=== PATIENT | female | born 1950 | race Caucasian/White ===

== ENCOUNTER → 2016-10-28 | Outpatient (CLI) | payer BC | LOC: FIMAGING 11:27 | DX: Z12.31 Encounter for screening mammogram for malignant neoplasm of breast (principal) | CPT/HCPCS: G0202 ==

== ENCOUNTER 2016-11-19 16:21 | Inpatient (IN) | payer BC ==
[2016-11-19] MEDS ORDERED: ONDANSETRON 4 MG/2 ML VIAL IVP ONE (17:42)
[2016-11-19] MEDS ORDERED: NS 1,000 ML IV ONE (17:42)
[2016-11-19 18:00] LABS: % IMMATURE GRANULYOCYTES 0.4 % (0.0-1.1); ABSOLUTE IMMATURE GRANULOCYTES 0.04 10^3/uL (0.00-0.10); ADD DIFF? NO; ADD MORPH? NO; ADD SCAN? NO; ATYPICAL LYMPHOCYTE FLAG 0 (0-99); FRAGMENT RBC FLAG 0 (0-99); HEMATOCRIT 38.8 % (38.0-47.0); HEMOGLOBIN 12.7 g/dL (12.6-16.3); LEFT SHIFT FLG 0 (0-99); LIPEMIA HEMOLYSIS FLAG 80 (0-99); MEAN CELL HEMOGLOBIN 28.2 pg (27.9-34.1); MEAN CELL HEMOGLOBIN CONCENTR. 32.7 g/dL (32.4-36.7); MEAN PLATELET VOLUME 12.1 fL (8.7-11.7); PLATELET CLUMPS FLAG 10 (0-99); PLATELET COUNT 259 10^3/uL (150-400); RED BLOOD CELL COUNT 4.51 10^6/uL (4.18-5.33); RED CELL DISTRIBUTION WIDTH 14.3 % (11.5-15.2)
[2016-11-19 18:02] LABS: ANION GAP 12 mEq/L (8-16); CALCIUM 9.3 mg/dL (8.5-10.4); CARBON DIOXIDE 22 mEq/l (22-31); CHLORIDE 102 mEq/L (97-110); CREATININE 1.4 mg/dL (0.6-1.0); GLOMERULAR FILTRATION RATE 38; GLUCOSE 255 mg/dL (70-100); POTASSIUM 4.1 mEq/L (3.5-5.2); SODIUM 136 mEq/L (134-144)
--- NOTE | 2016-11-19 18:02 | EDPHY ---
H & P Time Seen by Provider: 11/19/16 17:13 HPI/ROS: CHIEF COMPLAINT: Left lower quadrant pain HISTORY OF PRESENT ILLNESS: 66-year-old female presents with left lower quadrant pain. On 10/31/2016 she was diagnosed with diverticulitis and placed on Levaquin and Flagyl IV. She was admitted to [facility] and discharged home on Levaquin and Flagyl orally. Her symptoms completely resolved , but then returned approximately 1 week ago. She saw her primary care physician on Thursday and was given a another prescription for antibiotics. She felt better until 2 days ago, when she developed increased left lower quadrant pain. She had a CT scan today that demonstrated diverticulitis with perforation. She was sent to the emergency department for admission. REVIEW OF SYSTEMS: Constitutional: fever with the initial episode, none currently Eyes: No visual changes ENT: No sore throat Respiratory: No cough, no shortness of breath Cardiac: No chest pain Gastrointestinal: No nausea, no vomiting Genitourinary: no dysuria Musculoskeletal: No leg pain or swelling Skin: No rash Neurological: No headache, no weakness Psychiatric: No depression Past Medical/Surgical History: Diabetes Hypertension Social History: PCP: Dr. Chahal Smoking Status: Never smoked Physical Exam: General Appearance: Alert, pleasant Eyes: Pupils equal and round, no conjunctival pallor or injection ENT, Mouth: Mucous membranes moist Neck: Normal inspection Respiratory: Lungs are clear to auscultation Cardiovascular: Regular rate and rhythm Gastrointestinal: Abdomen is soft, left lower quadrant tenderness Neurological: A&O, nonfocal, normal gait Skin: Warm and dry, no rash Extremities: Nontender, no pedal edema Psychiatric: Mood and affect normal Constitutional: Initial Vital Signs Temperature (C) 36.8 C 11/19/16 16:52 Heart Rate 72 11/19/16 16:52 Respiratory Rate 20 11/19/16 16:52 Blood Pressure 154/57 H 11/19/16 16:52 O2 Sat (%) 96 11/19/16 16:52 O2 Delivery Mode Room Air O2 (L/minute) 2 Allergies/Adverse Reactions: cefazolin sodium [From Ancef] Allergy (Verified 11/19/16 20:14) Other-Enter Comments cephalexin Allergy (Verified 11/19/16 20:14) Other-Enter Comments Sulfa (Sulfonamide Antibiotics) Allergy (Verified 11/19/16 16:50) Home Medications: Medication Instructions Recorded Aspirin [Aspirin 325 mg (*)] 325 mg PO HS 11/19/16 Atorvastatin Calcium [Lipitor 80 80 mg PO HS 11/19/16 mg] Calcium Carbonate/Vitamin D3 1 each PO DAILY 11/19/16 [Calcium 500 + Vit D Caplet] Carvedilol [Carvedilol] 6.25 mg PO BID 11/19/16 Cholecalciferol Vit D3 [Vitamin D3 1,000 units PO DAILY 11/19/16 (*)] FEXOFENADINE HCL 180 mg PO DAILY PRN 11/19/16 Fluticasone/Salmeterol [Advair 1 puffs PO BID PRN 11/19/16 100-50 Diskus] Furosemide [Furosemide] 20 mg PO DAILY 11/19/16 Herbals/Supplements -Info Only 1 ea PO DAILY 11/19/16 Insulin Glargine [Lantus] 32 units SQ HS 11/19/16 Insulin Lispro [Humalog] 15 - 17 unit SQ AC 11/19/16 LOSARTAN POTASSIUM [LOSARTAN 100 mg PO DAILY 11/19/16 POTASSIUM] Levothyroxine [Synthroid 125 mcg 125 mcg PO DAILY06 11/19/16 (*)] METRONIDAZOLE [METRONIDAZOLE] 500 mg PO TID 11/19/16 Pantoprazole Sodium [Protonix 40mg 40 mg PO DAILY 11/19/16 (*)] SERTRALINE HCL [SERTRALINE HCL] 75 mg PO DAILY 11/19/16 levOFLOXACIN [Levofloxacin] 500 mg PO DAILY 11/19/16 Medical Decision Making ED Course/Re-evaluation: This patient presents with diverticulitis with perforation. Levaquin and Flagyl IV given. Morphine IV with relief in pain. 1800: consulted Dr. Obando for admission 1830: consulted Dr. Thomson, will see pt in hospital Pt stable throughout her ED stay. Abd exam unchanged on serial exams. Differential Diagnosis: Differential diagnosis includes though it is not limited to appendicitis, cholecystitis, diverticulitis, pyelonephritis, bowel perforation, small bowel obstruction. - Data Points Laboratory Results: Laboratory Results 11/19/16 17:13 11/19/16 17:13 Medications Given: Discontinued Medications Sodium Chloride (Ns) 1,000 mls @ 0 mls/hr IV ONCE ONE PRN Reason: Wide Open Stop: 11/19/16 17:43 Last Admin: 11/19/16 17:58 Dose: 1,000 mls Levofloxacin/Dextrose (Levaquin 750 Mg (Premix)) 150 mls @ 100 mls/hr IV EDNOW ONE PRN Reason: Protocol Stop: 11/19/16 19:11 Last Admin: 11/19/16 17:58 Dose: 150 mls Metronidazole/Sodium Chloride (Flagyl 500 Mg (Premix)) 100 mls @ 100 mls/hr IV EDNOW ONE PRN Reason: Protocol Stop: 11/19/16 18:41 Last Admin: 11/19/16 22:56 Dose: Not Given Morphine Sulfate (Morphine) 6 mg IVP EDNOW ONE Stop: 11/19/16 17:43 Last Admin: 11/19/16 18:12 Dose: 2 mg Ondansetron HCl (Zofran) 4 mg IVP EDNOW ONE Stop: 11/19/16 17:43 Last Admin: 11/19/16 17:59 Dose: 4 mg Departure - Departure Disposition: [facility] Inpatient Acute Clinical Impression: Diverticulitis Qualifiers: Diverticulitis site: large intestine Diverticulitis bleeding: without bleeding Diverticulitis complication: with perforation Qualified Code(s): K57.20 - Diverticulitis of large intestine with perforation and abscess without bleeding
[2016-11-19] MEDS ORDERED: ONDANSETRON DISINTEGRATING 4 MG TAB PO PRN (18:19)
[2016-11-19] MEDS ORDERED: ONDANSETRON 4 MG/2 ML VIAL IVP PRN (18:19)
[2016-11-19] MEDS ORDERED: FLUTICASONE/SALMETER 100/50MCG DISKUS IH PRN (20:22)
[2016-11-19] MEDS: NS 1,000 ML IV SCH (20:30)
[2016-11-19 20:39] LABS: ALBUMIN 3.8 g/dL (3.5-5.0); BILIRUBIN,TOTAL 0.9 mg/dL (0.1-1.4); BILIRUBIN-CONJUGATED 0.5 mg/dL (0.0-0.5); BILIRUBIN-UNCONJUGATED 0.4 mg/dL (0.0-1.1); TOTAL PROTEIN 6.2 g/dL (6.3-8.2)
[2016-11-19] MEDS: CARVEDILOL 6.25 MG TAB PO SCH (21:00)
[2016-11-19] MEDS: ATORVASTATIN CALCIUM 40 MG TAB PO SCH (21:05)
[2016-11-19] MEDS ORDERED: D50W 25 GM/50 ML SYR IVP PRN (21:06)
[2016-11-19] MEDS: INSULIN GLARGINE 100 UNITS/ML SYRINGE SC SCH (22:55)
[2016-11-20] MEDS: HYDROmorphONE/DILAUDID 1 MG/ML SYR IVP PRN ×2 (00:24→05:00)
--- NOTE | 2016-11-20 00:43 | GHP ---
[f rep st] HISTORY AND PHYSICAL DATE OF ADMISSION: 11/19/2016 CHIEF COMPLAINT: Recurrent diverticulitis. HISTORY OF PRESENT ILLNESS: Patient is a 66-year-old female with history of hypothyroidism, diabetes, and recent hospitalization for diverticulitis. Patient presented to [facility] late October and was hospitalized for 6 days with diverticulitis. At that time, she was treated with IV antibiotics and transitioned to p.o. Within completing antibiotic course, she redeveloped lower left abdominal pain. Pain is worse with standing and walking. It is constant, stabbing, and achy in nature. She had diarrhea today after receiving contrast for the CT scan. She reports decreased p.o. intake. May a little feverish last night. No chills, no cough, no nausea or vomiting. REVIEW OF SYSTEM: I completed a 10-point review of systems, negative except as noted in HPI. PAST MEDICAL HISTORY: Hypothyroidism, depression, diabetes, follicular thyroid cancer. PAST SURGICAL HISTORY: Cholecystectomy, appendectomy, thyroidectomy secondary to cancer, shoulder surgery. FAMILY HISTORY: Paternal uncles with SC. Dad with diabetes. Mom was healthy. SOCIAL HISTORY: Her 5 years ago. Lives in [place]. Has stepsons close by. No illicits, tobacco, or alcohol. ALLERGIES: Keflex, sulfa. HOME MEDICATIONS: Herbal supplement, vitamin D, calcium carbonate, fexofenadine 100 mg daily, aspirin 325 daily, lispro 15-17 units with meals, glargine 32 units q.h.s., Advair, completed Flagyl/levofloxacin, Coreg 6.25 mg b.i.d., losartan 100 mg daily, sertraline 75 mg daily, levothyroxine 125 mcg daily, Lasix 20 daily, atorvastatin 80 daily, Protonix 40 daily. PHYSICAL EXAMINATION: VITAL SIGNS: Temperature 37, blood pressure 122/63, heart rate 50s, respirations 16, 95% on room air. GENERAL: Overweight female, no acute distress. HEENT: PERRLA. Dry mucous membranes. CV : Regular rate and rhythm. No murmurs, gallops, rubs. LUNGS: Clear to auscultation. ABDOMEN: Lower quadrant tenderness. Worse with palpation. No guarding or rebound. Positive bowel sounds throughout. : No suprapubic or CVA tenderness. MUSCULOSKELETAL: 5/5 upper and lower extremity strength. NEUROLOGIC: 2 through 12 intact. No focal deficits. PSYCHIATRIC: Alert and oriented x3. LABORATORY DATA: WBC 9.96, hemoglobin 12, hematocrit 38, platelets 259. Sodium 136, potassium 4.1, chloride 102, carbon dioxide 22, creatinine is 1.4; baseline is 1.4 to 1.6. Glucose 255, repeat 152. LFTs within normal. Total protein is 6.2, albumin is 3.8. Abdomen CT: Acute diverticulitis of the distal descending colon with localized microperforations anteriorly and posteriorly. No bowel obstruction, renal abscess, or adenopathy. Nonspecific left adrenal mass, 1.7 cm. ASSESSMENT AND PLAN: 1. Recurrent diverticulitis: Patient recently treated with antibiotics, now here with recurrent abdominal pain and evidence of diverticulitis. There are microperforations in descending colon. Dr. Painting to consult. Will start on broad antibiotics with Levaquin and Flagyl. Planned on Invanz however there is cross-tolerance and patient has allergy (facial swelling) to Keflex. 2. Abdominal pain. Dilaudid p.r.n. 3. Incidental adrenal mass of 1.7 cm. Will need further imaging as an outpatient. 4. Chronic kidney disease. Creatinine stable, 1.4. 5. Hypothyroidism. Continue levothyroxine. 6. Gastroesophageal reflux disease. Continue PPI. 7. Depression. Continue Zoloft. 8. Hyperlipidemia. Statin. 9. Uncontrolled diabetes. Reduce dose of Lantus with n.p.o. status. May need up-titration tomorrow. 10. Diet: N.P.O., IV fluids. 11. DVT prophylaxis. SCDs with needing possible surgical intervention. DISCHARGE DISPOSITION: Patient warrants inpatient admission given acute diverticulitis with multiple microperforations, possible surgical intervention. /[id number]/MODL MTDD
--- NOTE | 2016-11-20 00:51 | PDCONSULT ---
Back Panel Padder Note: CC: recurrent abdominal pain HPI: 66 y/o female initially hospitalized in late October at [facility] for diverticulitis. She was treated with IV Abx and discharged home on oral Levaquin/Flagyl. She felt improved but then developed recurrent symptoms last week and was restarted on Levaquin and Flagyl last Thursday by Dr. Collier. She again felt improved and then had a worsening of symptoms on the day prior to admission. A CT scan was performed on 11/19 with oral and IV contrast which showed active diverticulitis with perforation. She was admitted for IV Abx and surgical consultation was requested by Dr. Metcalf. She feels slightly improved since admission and is hungry. PMH: IDDM/HTN allergies to cephalosporins and sulfa drugs non-smoker meds: reviewed in med reconciliation surgery: appendectomy/cholecystectomy/total thyroidectomy (follicular CA) SH: grew up in [place]/still working/family in the area FH: non-contributory ROS: last colonoscopy 4 years ago PE: pleasant woman appearing younger than her stated age Abd: soft/+BS, tender LLQ to percussion and palplation/no mass/mild guarding no HSM wbc 9.9 CT reviewed: contrast filled sigmoid with extraluminal air posteriorly and small fluid pocket anteriorly/no free fluid/no extra-luminal contrast Imp: complicated diverticulitis/without generalized peritonitis IDDM HTN Rec: continue IV Levaquin/Flagyl, low residue diet discussed pathophysiology and natural history of diverticulitis including possible need for surgery Dilma Thomson MD, FACS
[2016-11-20] MEDS: LEVOTHYROXINE 125 MCG TAB PO SCH (05:01)
[2016-11-20 05:19] LABS: HEMATOCRIT 35.9 % (38.0-47.0); HEMOGLOBIN 11.2 g/dL (12.6-16.3); MEAN CELL HEMOGLOBIN 27.5 pg (27.9-34.1); MEAN CELL HEMOGLOBIN CONCENTR. 31.2 g/dL (32.4-36.7); RED BLOOD CELL COUNT 4.08 10^6/uL (4.18-5.33); RED CELL DISTRIBUTION WIDTH 14.3 % (11.5-15.2)
[2016-11-20 05:44] LABS: ANION GAP 9 mEq/L (8-16); CALCIUM 8.5 mg/dL (8.5-10.4); CARBON DIOXIDE 22 mEq/l (22-31); CHLORIDE 109 mEq/L (97-110); CREATININE 1.2 mg/dL (0.6-1.0); GLOMERULAR FILTRATION RATE 45; GLUCOSE 119 mg/dL (70-100); POTASSIUM 4.2 mEq/L (3.5-5.2); SODIUM 140 mEq/L (134-144)
--- NOTE | 2016-11-20 06:56 | SOAPPROG ---
Downtime Inpatient Late Entry SOAP Note: Sarah is resting comfortably/pain is somewhat improved She has not had a fever/no more diarrhea after passing remainder of contrast Abd: soft/LLQ tenderness to palpation remains localized bowel sounds are active and there is minimal percussion tenderness WBC 7.4 Imp: Clinically improved with complicated diverticulitis no drainable abscess, but could heal without urgent surgical intervention Rec: we discussed dietary management and I recommended continuing with only liquids today and progressing to a low residue diet in the next day or two We discussed the pathophysiology and surgical treatment of diverticulitis in the course of a 20 minute visit Dilma Thomson MD, FACS
[2016-11-20] MEDS: INSULIN LISPRO 100 UNIT/ML SC SCH ×3 (08:00→18:39)
[2016-11-20] MEDS: CHOLECALCIFEROL VIT D3 1,000 UNITS TAB PO SCH (08:58)
[2016-11-20] MEDS: CALCIUM CARB W/VIT D 500 MG TAB PO SCH (08:59)
[2016-11-20] MEDS: SERTRALINE HCL 50 MG TAB PO SCH (08:59)
[2016-11-20] MEDS: CARVEDILOL 6.25 MG TAB PO SCH ×2 (09:00→20:06)
[2016-11-20] MEDS: PANTOPRAZOLE SODIUM 40 MG TAB PO SCH (09:00)
[2016-11-20] MEDS ORDERED: Herbals/Supplements -Info Only PO SCH (09:00)
[2016-11-20] MEDS ORDERED: ERTAPENEM 1 GM in NS 100 ML IV SCH (09:00)
[2016-11-20] MEDS: ACETAMINOPHEN 325 MG TAB PO PRN ×2 (10:17→18:41)
--- NOTE | 2016-11-20 14:33 | HOSPPROG ---
Hospitalist Progress Note Assessment/Plan: 66-year-old female presents emergency room complaints of abdominal pain. This is my 1st encounter with the patient, chart reviewed. # recurrent diverticulitis with microperforations Patient's 1st episode in October Completed antibiotic course Continue supportive management Appreciate Dr. Thomson consult Continue IV antibiotics Clear liquid diet Less pain today # abdominal pain Improved today Continue supportive care # incidental adrenal mass Follow-up outpatient # chronic kidney disease Stable # uncontrolled diabetes Continue supportive management # history of hypothyroidism Continue home medications # disposition Continue supportive care Slow conservative progression Continue clear liquids at this time Subjective: Up in the chair. Feels okay today. Less abdominal pain than yesterday. Objective: Vital Signs Temp Pulse Resp BP Pulse Ox 36.6 C 60 16 138/59 H 95 11/20/16 07:22 11/20/16 09:00 11/20/16 07:22 11/20/16 09:00 11/20/16 07:22 Laboratory Results 11/20/16 04:49 11/20/16 04:49 11/19/16 11/20/16 11/21/16 05:59 05:59 05:59 Intake Total 1804 Output Total 550 Balance 1804 -550 - Physical Exam Constitutional: no apparent distress, appears nourished, not in pain Eyes: PERRL, anicteric sclera, EOMI Ears, Nose, Mouth, Throat: moist mucous membranes, hearing normal, ears appear normal Cardiovascular: No JVD, No bradycardia, No edema Respiratory: no respiratory distress, no rales or rhonchi, reduced air movement Gastrointestinal: tenderness, No ascites, No distension Skin: warm, normal color, No erythema Musculoskeletal: full muscle strength, normal joint ROM, no joint effusions Neurologic: AAOx3 Psychiatric: interacting appropriately, not anxious, not encephalopathic ICD10 Worksheet Patient Problems: Problems Problem Status Onset Diverticulitis Acute
[2016-11-20] MEDS: NS 1,000 ML IV SCH (20:05)
[2016-11-20] MEDS: INSULIN GLARGINE 100 UNITS/ML SYRINGE SC SCH (20:06)
[2016-11-20] MEDS: ATORVASTATIN CALCIUM 40 MG TAB PO SCH (20:06)
[2016-11-20] MEDS ORDERED: INSULIN GLARGINE 100 UNITS/ML SYRINGE SC SCH (21:00)
[2016-11-21 05:27] LABS: ANION GAP 10 mEq/L (8-16); CARBON DIOXIDE 23 mEq/l (22-31); CHLORIDE 112 mEq/L (97-110); CREATININE 1.1 mg/dL (0.6-1.0); GLOMERULAR FILTRATION RATE 50; GLUCOSE 121 mg/dL (70-100); POTASSIUM 4.1 mEq/L (3.5-5.2); SODIUM 145 mEq/L (134-144)
[2016-11-21] MEDS: LEVOTHYROXINE 125 MCG TAB PO SCH (05:30)
--- NOTE | 2016-11-21 07:35 | PDCONSULT ---
Political Consultant Note: Sarah reports diminishing abdominal pain, but is now suffering from Upper respiratory symptoms and congestion Lungs are clear to auscultation CVS RRR Abd: soft/+BS, mild LLQ tenderness Imp: clinically improving diverticulitis with localized perforation Rec: advance to low residue diet continue Maura Thomson MD, FACS
[2016-11-21] MEDS: INSULIN LISPRO 100 UNIT/ML SC SCH ×3 (08:06→18:37)
[2016-11-21] MEDS: CARVEDILOL 6.25 MG TAB PO SCH ×2 (08:12→19:43)
[2016-11-21] MEDS: CHOLECALCIFEROL VIT D3 1,000 UNITS TAB PO SCH (08:12)
[2016-11-21] MEDS: CALCIUM CARB W/VIT D 500 MG TAB PO SCH (08:12)
[2016-11-21] MEDS: PANTOPRAZOLE SODIUM 40 MG TAB PO SCH (08:12)
[2016-11-21] MEDS: SERTRALINE HCL 50 MG TAB PO SCH (08:12)
[2016-11-21] MEDS: CETIRIZINE 10 MG TAB PO PRN ×2 (08:12→19:43)
--- NOTE | 2016-11-21 16:46 | HOSPPROG ---
Hospitalist Progress Note Assessment/Plan: Sarah is 66-year-old female presents emergency room complaints of abdominal pain. This is my 1st encounter with the patient, chart reviewed. Reviewed her care with Dr Thomson. # recurrent diverticulitis with microperforations Patient's 1st episode in October/did a complete course of antibiotics Continue supportive management Appreciate Dr. Thomson consult IV antibiotics/Levaquin and Cipro started on low residue diet today sees Dr Raines with GI as an OP # abdominal pain none further #Upper head cold symptoms -resolved w Zyrtec/suspect it's allergies #Hypernatremia recheck labs in a.m. # incidental left adrenal mass 1.7 cm/ recommendation is an MRI of the adrenals Follow-up outpatient after she recovers from the above # chronic kidney disease Stable/improved with hydration # uncontrolled diabetes glucoses overall well managed today # history of hypothyroidism Continue home medications # disposition hopefully, home tomorrow if she can tolerate low residue diet Subjective: Sarah is feeling well overall. Objective: Vital Signs Temp Pulse Resp BP Pulse Ox 36.8 C 81 20 143/73 H 96 11/21/16 15:23 11/21/16 15:23 11/21/16 15:23 11/21/16 15:23 11/21/16 15:23 Laboratory Results 11/20/16 04:49 11/21/16 04:50 11/20/16 11/21/16 11/22/16 05:59 05:59 05:59 Intake Total 1804 2673 Output Total 2450 700 Balance 1804 223 -700 - Physical Exam Constitutional: no apparent distress, appears nourished, not in pain Eyes: PERRL Ears, Nose, Mouth, Throat: hearing normal Cardiovascular: regular rate and rhythym, no murmur, rub, or gallop Respiratory: no respiratory distress, no rales or rhonchi Gastrointestinal: normoactive bowel sounds, soft, non-tender abdomen Skin: warm, normal color Musculoskeletal: full muscle strength Neurologic: AAOx3 Psychiatric: interacting appropriately, not anxious ICD10 Worksheet Patient Problems: Problems Problem Status Onset Diverticulitis Acute
[2016-11-21] MEDS: ATORVASTATIN CALCIUM 40 MG TAB PO SCH (19:43)
[2016-11-21] MEDS: INSULIN GLARGINE 100 UNITS/ML SYRINGE SC SCH (19:44)
[2016-11-22 05:35] LABS: ANION GAP 10 mEq/L (8-16); CALCIUM 9.1 mg/dL (8.5-10.4); CARBON DIOXIDE 23 mEq/l (22-31); CHLORIDE 110 mEq/L (97-110); CREATININE 1.2 mg/dL (0.6-1.0); GLOMERULAR FILTRATION RATE 45; GLUCOSE 253 mg/dL (70-100); POTASSIUM 4.4 mEq/L (3.5-5.2); SODIUM 143 mEq/L (134-144)
[2016-11-22] MEDS: LEVOTHYROXINE 125 MCG TAB PO SCH (05:58)
[2016-11-22 07:55] VITALS: BP 152/58; PULSE 64; RESP 20; TEMP 98.1; O2SAT 94
[2016-11-22] MEDS: INSULIN LISPRO 100 UNIT/ML SC SCH ×2 (08:14→13:19)
[2016-11-22] MEDS: CALCIUM CARB W/VIT D 500 MG TAB PO SCH (08:15)
[2016-11-22] MEDS: CARVEDILOL 6.25 MG TAB PO SCH (08:15)
[2016-11-22] MEDS: SERTRALINE HCL 50 MG TAB PO SCH (08:16)
[2016-11-22] MEDS: PANTOPRAZOLE SODIUM 40 MG TAB PO SCH (08:17)
[2016-11-22] MEDS: CHOLECALCIFEROL VIT D3 1,000 UNITS TAB PO SCH (08:17)
[2016-11-22] MEDS: CETIRIZINE 10 MG TAB PO PRN (08:24)
[2016-11-22] MEDS ORDERED: ENOXAPARIN 40 MG/0.4 ML SYR SC SCH (09:00)
--- NOTE | 2016-11-22 11:17 | PDCONSULT ---
Lithoplate Maker Note: resting comfortably/tolerating low residue diet Abd: soft/minimal LLQ tenderness Imp: Clinically improved complicated diverticulitis Rec: transition to oral Abx-continue for 10 days continue low residue diet next two weeks FU my office 2 weeks We discussed elective sigmoid colectomy after fully recovered. Dilma Thomson MD, FACS
--- NOTE | 2016-11-22 11:48 | HOSPPROG ---
Hospitalist Progress Note Assessment/Plan: Sarah is 66-year-old female presents emergency room complaints of abdominal pain. # recurrent diverticulitis with microperforations Patient's 1st episode in October/did a complete course of antibiotics Continue supportive management Appreciate Dr. Thomson consult IV antibiotics/Levaquin and Cipro started on low residue diet and did well with this sees Dr Raines with GI as an OP dc home on oral abx # abdominal pain none further #Upper head cold symptoms -resolved #Hypernatremia resolved # incidental left adrenal mass 1.7 cm/ recommendation is an MRI of the adrenals Follow-up outpatient after she recovers from the above # chronic kidney disease Stable/sees Dr Stephens in the OP setting # uncontrolled diabetes glucoses elevated # history of hypothyroidism Continue home medications # disposition dc home/ reviewed her care with Dr Thomson/ further f/u with him/ recommending low residue diet at dc Subjective: Sarah has no c/o pain. Objective: Vital Signs Temp Pulse Resp BP Pulse Ox 36.7 C 64 20 152/58 H 94 11/22/16 07:54 11/22/16 07:54 11/22/16 07:54 11/22/16 07:54 11/22/16 07:54 Laboratory Results 11/20/16 04:49 11/22/16 04:49 11/21/16 11/22/16 11/23/16 05:59 05:59 05:59 Intake Total 2673 1400 Output Total 2450 1700 650 Balance 223 -300 -650 - Physical Exam Constitutional: no apparent distress, appears nourished, not in pain Eyes: PERRL Ears, Nose, Mouth, Throat: hearing normal Cardiovascular: regular rate and rhythym Gastrointestinal: normoactive bowel sounds, soft, non-tender abdomen Skin: warm, normal color Musculoskeletal: full muscle strength Neurologic: sensation intact bilaterally Psychiatric: interacting appropriately ICD10 Worksheet Patient Problems: Problems Problem Status Onset Diverticulitis Acute
--- NOTE | 2016-11-22 15:20 | GDS ---
[f rep st] DISCHARGE SUMMARY DISCHARGE DIAGNOSES: 1. Recurrent diverticulitis with microperforations. 2. Abdominal pain. 3. Upper head cold symptoms. 4. Hypernatremia. 5. Incidental left adrenal mass, 1.7 cm. 6. Chronic kidney disease. 7. Controlled diabetes. 8. History of hypothyroidism. CONSULTATIONS: Dr. Edgar Thomson with surgical services. Briefly, the patient is a 66-year-old female with a history of hypothyroid, diabetes, and recent hospitalization for diverticulitis. She was in [facility] in late October and was hospitalized for 6 days with diverticulitis. She was treated with IV antibiotics and transitioned to p.o. When she completed it, she started to develop left lower quadrant pain. She had a CT of the abdomen which showed acute diverticulitis at the distal descending colon with localized microperforations anteriorly and posteriorly, and a nonspecific left adrenal mass was noted. She was treated with IV antibiotics. She is feeling markedly better. She will meet with Dr. Thomson in the next 2 weeks and further discuss if she needs an elective sigmoid colectomy after she fully recovers. HOSPITAL COURSE: 1. Recurrent diverticulitis with microperforations. She had her 1st episode in October and did a complete course of antibiotics. She will be discharged on Levaquin and Flagyl. She was feeling better throughout her stay. Will recommend a low-residue diet for next two weeks. 2. Abdominal pain. None further. 3. Upper head cold symptoms, resolved. 4. Hypernatremia, resolved. 5. Incidental left adrenal mass of 1.7 cm. Recommendation is an MRI of the adrenals. 6. Chronic kidney disease. This is stable. She sees Dr. Stephens in the outpatient setting. 7. Controlled type 2 diabetes. Her glucoses were elevated today. I suspect it was a change in the diet. 8. Hypothyroidism. Home medications have been continued. PENDING LABS AND TESTS: None. CONDITION ON DISCHARGE: Stable. Blood pressure is 152/58. Heart rate is 64. Respiratory rate is 20. O2 sats on room air are 94%. Temperature is 36.7 Celsius. MEDICATIONS AT DISCHARGE: Please see the EMR. DISCHARGE INSTRUCTIONS: 1. To return to the ER if she develops any fever, chills, chest pain, or shortness of breath. 2. To follow up with Dr. Thomson as scheduled in the next 2 weeks. Greater than 30 minutes discharging and coordinating care. Copy requested to: Dr. Raines /[id number]/MODL MTDD
== END 2016-11-22 13:47 | disposition home or self-care (01) | DRG 392 ==
LOC: F3N 19:55
PROVIDERS: ADMIT Internal Medicine; ATTEND Internal Medicine
DX: K57.20 Diverticulitis of large intestine with perforation and abscess without bleeding (principal); E87.0 Hyperosmolality and hypernatremia; E11.65 Type 2 diabetes mellitus with hyperglycemia; E27.9 Disorder of adrenal gland, unspecified; N18.9 Chronic kidney disease, unspecified; E03.9 Hypothyroidism, unspecified; I12.9 Hypertensive chronic kidney disease with stage 1 through stage 4 chronic kidney disease, or unspecified chronic kidney disease; K21.9 Gastro-esophageal reflux disease without esophagitis; F32.9 Major depressive disorder, single episode, unspecified; E78.5 Hyperlipidemia, unspecified
CPT/HCPCS: 96365; J1170; J1650; J1815; J1956; J2405

== ENCOUNTER → 2016-11-19 | Outpatient (CLI) | payer BC ==
[~2016-11-19] MED LIST: IOPAMIDOL (ISOVUE-300) 100 ML BTL IV ONE
== END ==
LOC: FIMAGING 10:56
PROVIDERS: ATTEND Internal Medicine
DX: K57.30 Diverticulosis of large intestine without perforation or abscess without bleeding (principal); I70.0 Atherosclerosis of aorta; E27.9 Disorder of adrenal gland, unspecified
CPT/HCPCS: Q9967

== ENCOUNTER 2017-01-16 11:30 | Inpatient (IN) | payer BC ==
[~2017-01-16 11:30] MED LIST changes: +BACITRACIN 50,000 UNITS/10 ML SYR IRR ONE; +BUPIVACAINE 0.5% 30 ML SDV ONE; -IOPAMIDOL (ISOVUE-300) 100 ML BTL IV ONE; +POLYMYXIN B SULFATE 500,000 UNIT/10 ML SYR IRR ONE
[2017-01-16] MEDS ORDERED: FLUTICASONE/SALMETER 100/50MCG DISKUS IH PRN (11:45)
[2017-01-16] MEDS ORDERED: LIDOCAINE 1% 5 ML SDV ONE (12:15)
[2017-01-16] MEDS ORDERED: ROCURONIUM 50 MG/5 ML VIAL ONE (12:39)
[2017-01-16] MEDS ORDERED: ONDANSETRON 4 MG/2 ML VIAL ONE (12:39)
[2017-01-16] MEDS ORDERED: DEXAMETHASONE 4 MG/ML VIAL ONE (12:39)
[2017-01-16] MEDS ORDERED: SUGAMMADEX SODIUM 200 MG/2 ML VIAL IVP ONE (12:39)
[2017-01-16] MEDS ORDERED: LIDOCAINE 2% 100 MG/5 ML SYR ONE (12:39)
[2017-01-16] MEDS ORDERED: fentaNYL 100 MCG/2 ML INJ ONE ×2 (12:40→17:29)
[2017-01-16] MEDS ORDERED: PROPOFOL 200 MG/20 ML VIAL ONE (12:40)
[2017-01-16] MEDS ORDERED: HYDROmorphONE/DILAUDID 2 MG/ML INJ ONE (12:40)
[2017-01-16] MEDS ORDERED: MIDAZOLAM 2 MG/2 ML VIAL ONE (13:46)
[2017-01-16] MEDS ORDERED: epHEDrine SULFATE 10 MG/ML SYR ONE (14:32)
[2017-01-16] MEDS ORDERED: BUPIVACAINE 0.25% 30 ML SDV ONE (15:20)
[2017-01-16] MEDS ORDERED: NALOXONE HCL 0.4 MG/ML INJ ONE (16:55)
--- NOTE | 2017-01-16 17:00 | POSTOPPROG ---
Post Op Note Date of Operation: 01/16/17 Surgeon: Edgar Thomson (, FACS) Coil Winder Strap: LAMBERT Harper Anesthesiologist: Hammad Hernandez MD + Yasmany Smallwood DO Anesthesia: GET(General Endotracheal) Pre-op Diagnosis: sigmoid diverticulitis Post-op Diagnosis: perforated sigmoid diverticulitis with abscess Procedure: laparoscopic partial colectomy with anastamosis, drainage pelvic abscess Inf/Abcess present in the surg proc area at time of surgery?: Yes Depth: Organ Space EBL: 50-100 Drains: Lazaro
[2017-01-16] MEDS ORDERED: ONDANSETRON 4 MG/2 ML VIAL IVP PRN (17:11)
[2017-01-16] MEDS ORDERED: D50W 25 GM/50 ML SYR IVP PRN (17:13)
--- NOTE | 2017-01-16 17:50 | SOAPPROG ---
Downtime Inpatient MD Late Entry SOAP Note: Sarah had moderate apnea after her initial extubation/requiring Ambu Bag ventilation and placement of a LMA. She was ultimately returned to the PACU extubated with mild hoarseness/wheezing. CXR showed mild pulmonary edema and I recommended she be admitted to the SDU for pulmonary observation. Hospitalist consult is pending. Dilma Thomson MD, FACS
[2017-01-16] MEDS: LR 1,000 ML IV SCH (18:46)
[2017-01-16] MEDS: INSULIN REGULAR HUMAN 100 UNIT/ML SC SCH ×2 (18:48→21:12)
--- NOTE | 2017-01-16 19:19 | GOP ---
[f rep st] OPERATIVE REPORT DATE OF OPERATION: 01/16/2017 SURGEON: Edgar Thomson MD SCANNING CLERK: LAMBERT French. ANESTHESIA: General endotracheal. ANESTHESIOLOGIST: Hammad Hernandez MD, and Yasmany Smallwood DO. PREOPERATIVE DIAGNOSIS: Diverticulitis with perforation. POSTOPERATIVE DIAGNOSIS: 1. Diverticulitis with pelvic abscess. 2. Infarcted left paratubal cyst. PROCEDURE PERFORMED: 1. Laparoscopic sigmoid colectomy and primary colocolostomy. 2. Mobilization of splenic flexure. 3. Drainage of pelvic abscess. 4. Resection of infarcted left paratubal cyst. FINDINGS: Short segment of inflamed sigmoid diverticulum at the pelvic brim with persistent walled off the lateral pelvic abscess. Adhesions related to prior open gallbladder surgery. Infarcted left paratubal cyst. ESTIMATED BLOOD LOSS: 50 cc. DESCRIPTION OF PROCEDURE: After informed consent was obtained, the patient was brought to the opera ting room and placed under general anesthesia. She was positioned in low lithotomy with Yellofin st irrups. The abdomen and perineum were prepped and draped in usual fashion. Rodriguez catheter was plac ed. Before proceeding, a time-out and identification of the patient was performed. 0.25% Marcaine was used to infiltrate all incision sites. A longitudinal incision was made through the base of the umbilicus and carried through skin and subcutaneous tissues. Ventral traction was a pplied to the abdominal wall and a Veress needle was introduced into the peritoneal cavity. Positio n was confirmed by saline infusion. A pneumoperitoneum was established with CO2 gas to a pressure o f 15 mmHg. The Veress needle was withdrawn and replaced with a 5 mm bladeless trocar. A 5 mm 30-de gree scope was introduced and the peritoneal cavity was visualized. Additional 5 mm port was placed in the right lower quadrant and a 3rd in the suprapubic area; this allowed introduction of atraumat ic grasping forceps. The table was rotated to the patient's right and this allowed visualization of the sigmoid colon. The omentum had adhered to the medial wall of the sigmoid colon and, as this was peeled back, the sigmoid colon was visualized and the inflamed segment was identified. Lateral to the inflamed segment of sigmoid colon, an abscess was encountered. The specimen was submitted for a erobes and anaerobes, as well as fungi. The segment measured approximately 10 cm. The bowel proxim al and distal to this was mobilized by incising the peritoneum and dissection carried out cephalad t o the splenic flexure, mobilizing and freeing up the splenocolic attachments, mobilizing the distal transverse colon and splenic flexure. The mesentery of the sigmoid colon was then taken down with t he Harmonic scalpel to facilitate resection. An access incision was made in the left lower quadrant approximately 6-7 cm in length and dissection carried out through the skin and subcutaneous tissues , external oblique fascia, internal oblique muscle and transverse abdominis. Perineum was incised, and an Anthony wound protector was introduced (medium) and the sigmoid colon brought up into the inci terra. The damaged segment was resected sharply and a two-layered hand-sewn end-to-end anastomosis w as performed as follows: Interrupted 3-0 Vicryl sutures were used to approximate the posterior oute r wall. The inner posterior wall was initiated with continuous running 3-0 Vicryl suture; this was c ompleted anteriorly in a mucosal inverting fashion. Subsequently the anterior outer row of the anas tomosis was performed with interrupted 3-0 Vicryl sutures. The anastomosis was dropped back into th e abdominal cavity. The Anthony wound protector was removed and gloves were changed. The peritoneum was closed with 2-0 Vicryl suture. The muscle was approximated with #1 PDS suture. Subcutaneous t issues were infiltrated with 0.25% Marcaine and irrigated copiously with antibiotic containing solut ion. A 1/4-inch Byron drain was brought through the wound and secured to the skin laterally with 3-0 Prolene suture. The incision was closed with colette. Pneumoperitoneum was reestablished and t he peritoneal cavity was revisualized. The anastomosis appeared intact without undue tension, and th ere was no active bleeding. As I was completing the exploration, I noted an area of black tissue ad jacent to the patient's left fallopian tube. Initially I thought this may have been related to the abscess but was, in fact, an infarcted left paratubal cyst; this was resected and submitted for perm anent section. Both ovaries otherwise appeared normal as did the patient's uterus. The pneumoperit oneum was evacuated. The remaining ports were removed. The skin was closed with 4-0 Monocryl sutur e in a subcuticular fashion. Mastisol and Steri-Strips were applied. Needle, sponge, and instrumen t count were correct. COMPLICATIONS: None. /[id number]/MODL
[2017-01-16] MEDS ORDERED: FUROSEMIDE 20 MG/2 ML VIAL IVP ONE (19:42)
--- NOTE | 2017-01-16 19:48 | PDGENHP ---
History and Physical - Chief Complaint Acute cough - History of Present Illness PCP: Dr. Chahal Primary surgeon: Dr. Thomson Primary certified pharmacist assistant: Dr. Raines Primary concrete engineering technician: Dr. Díaz HPI: 66-year-old female presenting for elective partial colectomy laparoscopically experiencing acute cough characterized as "drowning" sensation located in her upper chest with associated shortness of breath, with onset of symptoms after she was awakened from anesthesia. Duration has been persistent thereafter. Patient underwent an uncomplicated laparoscopic surgery and postoperatively when she was extubated she appeared apneic. Anesthesia intervened with LMA and Narcan was administered. Once she awoke from anesthesia , she was experiencing the aforementioned symptoms. She reports that she has not taken her home medications on the day of this presentation. History Information - Allergies/Home Medication List Allergies/Adverse Reactions: cefazolin sodium [From Ancef] Allergy (Severe, Verified 01/05/17 16:03) Other-Enter Comments cephalexin Allergy (Severe, Verified 01/05/17 16:03) Other-Enter Comments Sulfa (Sulfonamide Antibiotics) Allergy (Severe, Verified 01/05/17 16:03) Other-Enter Comments Home Medications: Aspirin [Aspirin 325 mg (*)] 325 mg PO HS 11/19/16 [Last Taken Unknown] Atorvastatin Calcium [Lipitor 80 mg] 80 mg PO HS 11/19/16 [Last Taken Unknown] Calcium Carbonate/Vitamin D3 [Calcium 500 + Vit D Caplet] 1 each PO DAILY [Last Taken Unknown] Carvedilol 6.25 mg PO BID 11/19/16 [Last Taken 11/19/16] Cholecalciferol Vit D3 [Vitamin D3 (*)] 1,000 units PO DAILY 11/19/16 [Last Taken Unknown] FEXOFENADINE HCL 180 mg PO DAILY PRN 11/19/16 [Last Taken Unknown] Fluticasone/Salmeterol [Advair 100-50 Diskus] 1 puffs PO BID PRN 11/19/16 [Last Taken Unknown] Furosemide 20 mg PO DAILY 11/19/16 [Last Taken 11/19/16] Herbals/Supplements -Info Only 1 ea PO DAILY 11/19/16 [Last Taken Unknown] Insulin Glargine [Lantus] 32 units SQ HS 11/19/16 [Last Taken Unknown] Insulin Lispro [Humalog] 15 - 17 unit SQ AC 11/19/16 [Last Taken Unknown] LOSARTAN POTASSIUM 100 mg PO DAILY 11/19/16 [Last Taken 11/19/16] Levothyroxine [Synthroid 125 mcg (*)] 125 mcg PO DAILY06 11/19/16 [Last Taken ] Pantoprazole Sodium [Protonix 40mg (*)] 40 mg PO DAILY 11/19/16 [Last Taken ] SERTRALINE HCL 75 mg PO DAILY 11/19/16 [Last Taken 11/19/16] I have personally reviewed and updated: family history, medical history, social history, surgical history - Past Medical History diabetes type 2 ( Most recent hemoglobin A1c 8.6%), GERD Additional medical history: Follicular thyroid cancer. Depression. Chronic kidney disease stage 3 with baseline creatinine 1.3-1.5. Hypothyroidism. Recurrent diverticulitis with microperforations. Left-sided adrenal mass with recent outpatient endocrine workup - Surgical History Additional surgical history: cholecystectomy. Appendectomy. Thyroid surgery. Shoulder surgery - Family History Additional family history: father with diabetes, uncles with myocardial infarction - Social History Smoking Status: Never smoked Alcohol Use: None Drug Use: None Additional social history: normally independent in her ADLs Review of Systems ROS: 10pt was reviewed & negative except for what was stated in HPI & below Respiratory: Reports: cough, shortness of breath Physical Exam Temp Pulse Resp BP Pulse Ox 36.7 C 73 19 118/50 L 95 01/16/17 18:49 01/16/17 18:49 01/16/17 18:49 01/16/17 18:49 01/16/17 18:49 O2 (L/minute) 4 Constitutional: no apparent distress, not in pain, obese, uncomfortable Eyes: PERRL, anicteric sclera, EOMI Ears, Nose, Mouth, Throat: moist mucous membranes, hearing normal, ears appear normal, no oral mucosal ulcers Cardiovascular: systolic murmur ( 106 at apex), No irregularly irregular, No tachycardia, No edema Respiratory: inspiratory crackles ( bilaterally), other ( cough elicited with deep inspiration), No expiratory wheeze, No bronchial breath sounds Gastrointestinal: tenderness ( mild with moderate palpation, left-sided CAROLA drain in place), No normoactive bowel sounds ( hypoactive bowel sounds), No guarding Skin: other ( no erythema or induration around surgical sites) Neurologic: AAOx3, No weakness ( motor strength 5/5 bilateral lower extremity) Psychiatric: not anxious, not encephalopathic, flat affect, other ( lethargic but arousable), No agitated Lab Data & Imaging Review POC Glucose 149 mg/dL (70-100) H 01/16/17 16:56 Visualized and Interpreted Chest x-ray results: Yes Chest X-Ray results: other ( bilateral pulmonary edema and interstitial markings ) Assessment & Plan Assessment: 66-year-old female presents for elective laparoscopic partial colectomy complicated by acute negative pressure pulmonary edema Plan: 1. Pulmonary edema. Acute, new problem to this provider, further w/u indicated. Negative pressure secondary to upper airway obstruction from airway collapse and apnea requiring LMA -discussed with Dr. Thomson, recommends not aggressively diuresing the patient given the negative pressure pathology of the situation as as well as recent bowel surgery but we have agreed to give the patient 20 mg of IV Lasix at this time, continue to monitor strict I&Os as well as daily electrolytes -continue on supplemental oxygen -get repeat chest x-ray if worsening, will consider BiPAP if worsening -warrants monitoring in SDU overnight 2. Diabetes mellitus type 2. reasonable outpatient control with 32 units of Lantus nightly, Humalog with carb counting and resulting hemoglobin A1c 8.6% -given the patient is currently not eating, hold Lantus, give a.c. and HS sliding scale -can introduce Lantus once the patient is tolerating an oral diet, recommend initiating her with 16 units and then up titrating to 30 to when she is eating a normal diet 3. Chronic kidney disease stage 3. baseline creatinine 1.3-1.5, currently 1.2 and near baseline -monitor creatinine BUN and lytes while patient is being diuresed 4. Recurrent diverticulitis. Reviewed outside records including 11/22/2016 discharge summary by Bertha Nobles, outlining patient's recent recurrent diverticulitis with microperforation presentation - patient is postop day 0 General surgery will remain the primary service for this patient, hospitalist Medicine will continue to consult in her care on a daily basis.
[2017-01-16] MEDS: CARVEDILOL 6.25 MG TAB PO SCH (20:11)
[2017-01-16] MEDS: ATORVASTATIN CALCIUM 40 MG TAB PO SCH (20:11)
[2017-01-16] MEDS: ASPIRIN 325 MG TAB PO SCH (20:11)
[2017-01-16] MEDS ORDERED: NON-FORMULARY NEW DRUG (Atorvastatin Calcium [Lipitor 80 Mg] 80 MG) PO SCH (21:00)
[2017-01-17] MEDS: HYDROmorphONE/DILAUDID 1 MG/ML SYR IVP PRN ×7 (00:29→22:00)
[2017-01-17] MEDS: LR 1,000 ML IV SCH ×3 (03:21→22:38)
[2017-01-17 05:38] LABS: HEMATOCRIT 38.3 % (38.0-47.0); HEMOGLOBIN 12.2 g/dL (12.6-16.3)
[2017-01-17 05:49] LABS: ANION GAP 8 mEq/L (8-16); CALCIUM 8.7 mg/dL (8.5-10.4); CARBON DIOXIDE 26 mEq/l (22-31); CHLORIDE 106 mEq/L (97-110); CREATININE 1.1 mg/dL (0.6-1.0); GLOMERULAR FILTRATION RATE 50; GLUCOSE 160 mg/dL (70-100); POTASSIUM 4.9 mEq/L (3.5-5.2); SODIUM 140 mEq/L (134-144)
[2017-01-17] MEDS: LEVOTHYROXINE 125 MCG TAB PO SCH (05:57)
[2017-01-17] MEDS: PANTOPRAZOLE SODIUM 40 MG TAB PO SCH (08:06)
[2017-01-17] MEDS: CARVEDILOL 6.25 MG TAB PO SCH ×2 (08:06→20:43)
[2017-01-17] MEDS: LOSARTAN POTASSIUM 50 MG TAB PO SCH (08:06)
[2017-01-17] MEDS: SERTRALINE HCL 50 MG TAB PO SCH (08:07)
[2017-01-17] MEDS: FUROSEMIDE 20 MG TAB PO SCH (08:07)
[2017-01-17] MEDS: INSULIN REGULAR HUMAN 100 UNIT/ML SC SCH ×4 (08:07→21:50)
[2017-01-17] MEDS: ENOXAPARIN 40 MG/0.4 ML SYR SC SCH (08:07)
--- NOTE | 2017-01-17 08:28 | SOAPPROG ---
SOAP Progress Note Assessment/Plan: Assessment: s/p lap sigmoid colectomy/drainage pelvic abscess post op pulmonary edema-resolved on exam + CXR (probable negative pressure pulmonary edema) post op ileus IDDM HTN SISSY Plan: transfer to med-surg/resume oral meds, but continue NPO until ileus resolves Internal medicine consult appreciated. Continue Levaquin/Flagy, check cultures S MD Alix, FACS 01/17/17 08:30 Subjective: resting comfortably/denies SOB Objective: Vital Signs Temp Pulse Resp BP Pulse Ox 36.7 C 65 17 122/46 H 98 01/17/17 07:49 01/17/17 07:49 01/17/17 07:49 01/17/17 07:49 01/17/17 07:49 Microbiology 01/16/17 15:01 Gram Stain - Final Abdomen - Eswab Laboratory Results 01/17/17 05:15 01/17/17 05:15 01/16/17 01/17/17 01/18/17 05:59 05:59 05:59 Intake Total 2212 Output Total 975 Balance 1237 - Pending Discharge Pending Discharge Within 24 Hours: No Pending Discharge Within 48 Hours: No Physical Exam - Physical Exam General Appearance: alert, no apparent distress, mild distress Respiratory: lungs clear, normal breath sounds Cardiac/Chest: regular rate, rhythm Abdomen: soft, other (dressings dry/quiet) ICD10 Worksheet Patient Problems: Problems Problem Status Onset Diverticulitis Acute
[2017-01-17] MEDS ORDERED: NON-FORMULARY NEW DRUG (Losartan Potassium [Losartan Potassium] 100 MG) PO SCH (09:00)
--- NOTE | 2017-01-17 11:00 | HOSPPROG ---
Hospitalist Progress Note Assessment/Plan: #Acute pulmonary edema: thought to be due to negative pressure during surgery. She denies any sxs suggestive heart failure. Improved with IV Lasix, now on low- dose oral #Controlled DM: now eating. Restart glargine at 20 units (32units at home) Uptitrate if needed #h/o follicular thyroid cancer: s/p thyroidectomy. LT4 #CKD 3: Cr stable #Diverticulitis with pelvic abscess: POD #1 sigmoid colectomy, abscess drainage. Flagyl, LQ #Diet: diabetic #DVT ppx: Lovenox #Disp: please call if questions, we will follow along # Subjective: mild abd pain today. No SOB Objective: Vital Signs Temp Pulse Resp BP Pulse Ox 36.7 C 65 17 122/46 H 98 01/17/17 07:49 01/17/17 07:49 01/17/17 07:49 01/17/17 07:49 01/17/17 07:49 Microbiology 01/16/17 15:01 Gram Stain - Final Abdomen - Eswab Laboratory Results 01/17/17 05:15 01/17/17 05:15 01/16/17 01/17/17 01/18/17 05:59 05:59 05:59 Intake Total 2212 Output Total 975 Balance 1237 - Physical Exam Constitutional: obese Eyes: PERRL Ears, Nose, Mouth, Throat: moist mucous membranes Cardiovascular: regular rate and rhythym Respiratory: no respiratory distress Gastrointestinal: soft, non-tender abdomen, other (surgical dressing C/D/I. Quiet BS) Genitourinary: no bladder fullness Skin: warm Musculoskeletal: full muscle strength Neurologic: AAOx3 Psychiatric: interacting appropriately ICD10 Worksheet Patient Problems: Problems Problem Status Onset Diverticulitis Acute
[2017-01-17] MEDS: ASPIRIN 325 MG TAB PO SCH (20:43)
[2017-01-17] MEDS: ATORVASTATIN CALCIUM 40 MG TAB PO SCH (20:43)
[2017-01-17] MEDS ORDERED: INSULIN GLARGINE 100 UNITS/ML SYRINGE SC SCH ×3 (21:00)
[2017-01-18 04:50] LABS: % IMMATURE GRANULYOCYTES 0.2 % (0.0-1.1); ABSOLUTE IMMATURE GRANULOCYTES 0.02 10^3/uL (0.00-0.10); ADD DIFF? NO; ADD MORPH? NO; ADD SCAN? NO; ATYPICAL LYMPHOCYTE FLAG 0 (0-99); FRAGMENT RBC FLAG 0 (0-99); HEMATOCRIT 34.1 % (38.0-47.0); HEMOGLOBIN 10.8 g/dL (12.6-16.3); LEFT SHIFT FLG 0 (0-99); LIPEMIA HEMOLYSIS FLAG 80 (0-99); MEAN CELL HEMOGLOBIN 27.3 pg (27.9-34.1); MEAN CELL HEMOGLOBIN CONCENTR. 31.7 g/dL (32.4-36.7); MEAN CELL VOLUME 86.1 fL (81.5-99.8); MEAN PLATELET VOLUME 11.5 fL (8.7-11.7); PLATELET CLUMPS FLAG 0 (0-99); PLATELET COUNT 145 10^3/uL (150-400); RED BLOOD CELL COUNT 3.96 10^6/uL (4.18-5.33); RED CELL DISTRIBUTION WIDTH 14.4 % (11.5-15.2)
[2017-01-18] MEDS: LEVOTHYROXINE 125 MCG TAB PO SCH (05:11)
[2017-01-18 05:13] LABS: ANION GAP 4 mEq/L (8-16); CALCIUM 8.7 mg/dL (8.5-10.4); CARBON DIOXIDE 28 mEq/l (22-31); CHLORIDE 106 mEq/L (97-110); CREATININE 1.2 mg/dL (0.6-1.0); GLOMERULAR FILTRATION RATE 45; GLUCOSE 154 mg/dL (70-100); POTASSIUM 4.3 mEq/L (3.5-5.2); SODIUM 138 mEq/L (134-144)
[2017-01-18] MEDS: LR 1,000 ML IV SCH (06:16)
[2017-01-18] MEDS: LOSARTAN POTASSIUM 50 MG TAB PO SCH (08:35)
[2017-01-18] MEDS: PANTOPRAZOLE SODIUM 40 MG TAB PO SCH (08:35)
[2017-01-18] MEDS: CARVEDILOL 6.25 MG TAB PO SCH ×2 (08:36→21:20)
[2017-01-18] MEDS: FUROSEMIDE 20 MG TAB PO SCH (08:36)
[2017-01-18] MEDS: ENOXAPARIN 40 MG/0.4 ML SYR SC SCH (08:36)
[2017-01-18] MEDS: SERTRALINE HCL 50 MG TAB PO SCH (08:42)
[2017-01-18] MEDS: INSULIN REGULAR HUMAN 100 UNIT/ML SC SCH ×4 (08:49→23:37)
[2017-01-18] MEDS: ERTAPENEM 1 GM in NS 100 ML IV SCH (09:32)
--- NOTE | 2017-01-18 09:39 | SOAPPROG ---
SOAP Progress Note Assessment/Plan: Assessment: S/P lap sigmoid, stable. Cont NPO/IVF, await bowel function. Will switch to ertapenem as it has the least cross-reactivity of the antibiotics listed in sensitivity, d/w patient. Plan: 01/18/17 09:38 Subjective: Patient feels better, decreased pain. No N/V. No flatus/BM. Minimal ambulation. Objective: Vital Signs Temp Pulse Resp BP Pulse Ox 36.9 C 76 20 139/48 H 96 01/17/17 19:21 01/18/17 08:00 01/18/17 08:00 01/18/17 08:00 01/18/17 08:00 Microbiology 01/16/17 15:01 Gram Stain - Final Abdomen - Eswab Laboratory Results 01/18/17 04:45 01/18/17 04:45 01/17/17 01/18/17 01/19/17 05:59 05:59 05:59 Intake Total 2212 2364 Output Total 975 2150 Balance 1237 214 Alert, NAD Abd sl distended, inc TTP Inc with min drainage from akash, slight ecchymosis, no erythema. ICD10 Worksheet Patient Problems: Problems Problem Status Onset Diverticulitis Acute
--- NOTE | 2017-01-18 10:55 | HOSPPROG ---
Hospitalist Progress Note Assessment/Plan: #Acute pulmonary edema: resolved. Thought to be due to negative pressure during surgery. She denies any sxs suggestive heart failure. Improved with IV Lasix, now on low-dose oral #Controlled DM: still NPO. Restart glargine once eating, SSI #h/o follicular thyroid cancer: s/p thyroidectomy. LT4 #CKD 3: Cr stable #Diverticulitis with pelvic abscess: POD #2 sigmoid colectomy, abscess drainage. Changed to Ertapenem with abx allergies #Diet: diabetic #DVT ppx: Lovenox #Disp: please call if questions, we will follow along # Subjective: mild abd pain today Objective: Vital Signs Temp Pulse Resp BP Pulse Ox 36.9 C 76 20 139/48 H 96 01/17/17 19:21 01/18/17 08:00 01/18/17 08:00 01/18/17 08:00 01/18/17 08:00 Microbiology 01/16/17 15:01 Gram Stain - Final Abdomen - Eswab Laboratory Results 01/18/17 04:45 01/18/17 04:45 01/17/17 01/18/17 01/19/17 05:59 05:59 05:59 Intake Total 2212 2364 Output Total 975 2150 Balance 1237 214 - Physical Exam Constitutional: no apparent distress Eyes: PERRL Ears, Nose, Mouth, Throat: moist mucous membranes Cardiovascular: regular rate and rhythym, no murmur, rub, or gallop Respiratory: no respiratory distress, no rales or rhonchi Gastrointestinal: other (quiet bowel sounds. TTP. surgical sites C/D/I) Skin: warm Musculoskeletal: full muscle strength Neurologic: AAOx3, CN II-XII Intact ICD10 Worksheet Patient Problems: Problems Problem Status Onset Diverticulitis Acute
[2017-01-18] MEDS: HYDROmorphONE/DILAUDID 1 MG/ML SYR IVP PRN ×2 (13:09→15:17)
[2017-01-18] MEDS: ATORVASTATIN CALCIUM 40 MG TAB PO SCH (21:19)
[2017-01-18] MEDS: ASPIRIN 325 MG TAB PO SCH (21:23)
[2017-01-19 05:34] LABS: % IMMATURE GRANULYOCYTES 0.3 % (0.0-1.1); ABSOLUTE IMMATURE GRANULOCYTES 0.02 10^3/uL (0.00-0.10); ADD DIFF? NO; ADD MORPH? NO; ADD SCAN? NO; ATYPICAL LYMPHOCYTE FLAG 0 (0-99); FRAGMENT RBC FLAG 0 (0-99); HEMATOCRIT 35.2 % (38.0-47.0); HEMOGLOBIN 11.5 g/dL (12.6-16.3); LEFT SHIFT FLG 0 (0-99); LIPEMIA HEMOLYSIS FLAG 80 (0-99); MEAN CELL HEMOGLOBIN 27.6 pg (27.9-34.1); MEAN CELL HEMOGLOBIN CONCENTR. 32.7 g/dL (32.4-36.7); MEAN CELL VOLUME 84.6 fL (81.5-99.8); PLATELET CLUMPS FLAG 0 (0-99); PLATELET COUNT 139 10^3/uL (150-400); RED BLOOD CELL COUNT 4.16 10^6/uL (4.18-5.33); RED CELL DISTRIBUTION WIDTH 13.8 % (11.5-15.2)
[2017-01-19 05:43] LABS: ALANINE AMINOTRANSFERASE 41 IU/L (9-52); ALBUMIN 3.2 g/dL (3.5-5.0); ALKALINE PHOSPHATASE 76 IU/L (38-126); ANION GAP 9 mEq/L (8-16); ASPARTATE AMINOTRANSFERASE 24 IU/L (14-46); BILIRUBIN,TOTAL 1.1 mg/dL (0.1-1.4); CALCIUM 8.9 mg/dL (8.5-10.4); CARBON DIOXIDE 26 mEq/l (22-31); CHLORIDE 101 mEq/L (97-110); CREATININE 1.2 mg/dL (0.6-1.0); GLOMERULAR FILTRATION RATE 45; GLUCOSE 144 mg/dL (70-100); POTASSIUM 3.5 mEq/L (3.5-5.2); SODIUM 136 mEq/L (134-144); TOTAL PROTEIN 5.3 g/dL (6.3-8.2)
[2017-01-19] MEDS: LEVOTHYROXINE 125 MCG TAB PO SCH (06:15)
--- NOTE | 2017-01-19 06:45 | SOAPPROG ---
SOAP Progress Note Assessment/Plan: Assessment: s/p lap sigmoid colectomy/drainage pelvic abscess-cultures E.coli R Levaquin/ switched to Ertapenam post op pulmonary edema-resolved on exam + CXR (probable negative pressure pulmonary edema) post op ileus-resolving IDDM HTN SISSY Plan: slowly advance diet Internal medicine consult appreciated. Continue Ertapenam/ID consult? outpatient IV Abx Dilma Thomson MD, FACS 01/17/17 08:30 01/19/17 06:43 Objective: Vital Signs Temp Pulse Resp BP Pulse Ox 36.6 C 71 16 160/54 H 93 01/18/17 22:57 01/18/17 22:57 01/18/17 22:57 01/18/17 22:57 01/18/17 22:57 Microbiology 01/16/17 15:01 Gram Stain - Final Abdomen - Eswab Laboratory Results 01/19/17 04:51 01/19/17 04:51 01/18/17 01/19/17 01/20/17 05:59 05:59 05:59 Intake Total 2364 Output Total 2150 1800 Balance 214 -1800 - Pending Discharge Pending Discharge Within 24 Hours: No Pending Discharge Within 48 Hours: No Physical Exam - Physical Exam General Appearance: alert, no apparent distress Respiratory: lungs clear Cardiac/Chest: regular rate, rhythm Abdomen: normal bowel sounds, soft, distended, other (incision o.k./drain removed) ICD10 Worksheet Patient Problems: Problems Problem Status Onset Diverticulitis Acute
[2017-01-19] MEDS: PANTOPRAZOLE SODIUM 40 MG TAB PO SCH (08:04)
[2017-01-19] MEDS: CARVEDILOL 6.25 MG TAB PO SCH ×2 (08:05→21:13)
[2017-01-19] MEDS: SERTRALINE HCL 50 MG TAB PO SCH (08:05)
[2017-01-19] MEDS: FUROSEMIDE 20 MG TAB PO SCH (08:05)
[2017-01-19] MEDS: LOSARTAN POTASSIUM 50 MG TAB PO SCH (08:05)
[2017-01-19] MEDS: ENOXAPARIN 40 MG/0.4 ML SYR SC SCH (08:06)
[2017-01-19] MEDS: ERTAPENEM 1 GM in NS 100 ML IV SCH (08:06)
[2017-01-19] MEDS: INSULIN REGULAR HUMAN 100 UNIT/ML SC SCH ×4 (09:26→21:15)
[2017-01-19] MEDS ORDERED: ALTEPLASE 2 MG VIAL IVP PRN (10:21)
--- NOTE | 2017-01-19 10:34 | PDIAF ---
- Diagnosis Diagnosis: Pelvic abscess Code Status: Full Code - Medication Management Discharge Medications: Medications to Continue on Transfer Aspirin [Aspirin 325 mg (*)] 325 mg PO HS 11/19/16 [Last Taken Unknown] Atorvastatin Calcium [Lipitor 80 mg] 80 mg PO HS 11/19/16 [Last Taken Unknown] Calcium Carbonate/Vitamin D3 [Calcium 500 + Vit D Caplet] 1 each PO DAILY [Last Taken Unknown] Carvedilol 6.25 mg PO BID 11/19/16 [Last Taken 11/19/16] Cholecalciferol Vit D3 [Vitamin D3 (*)] 1,000 units PO DAILY 11/19/16 [Last Taken Unknown] FEXOFENADINE HCL 180 mg PO DAILY PRN 11/19/16 [Last Taken Unknown] Fluticasone/Salmeterol [Advair 100-50 Diskus] 1 puffs PO BID PRN 11/19/16 [Last Taken Unknown] Furosemide 20 mg PO DAILY 11/19/16 [Last Taken 11/19/16] Herbals/Supplements -Info Only 1 ea PO DAILY 11/19/16 [Last Taken Unknown] Insulin Glargine [Lantus] 32 units SQ HS 11/19/16 [Last Taken Unknown] Insulin Lispro [Humalog] 15 - 17 unit SQ AC 11/19/16 [Last Taken Unknown] LOSARTAN POTASSIUM 100 mg PO DAILY 11/19/16 [Last Taken 11/19/16] Levothyroxine [Synthroid 125 mcg (*)] 125 mcg PO DAILY06 11/19/16 [Last Taken ] Pantoprazole Sodium [Protonix 40mg (*)] 40 mg PO DAILY 11/19/16 [Last Taken ] SERTRALINE HCL 75 mg PO DAILY 11/19/16 [Last Taken 11/19/16] Admissions Rn Antibiotics: Ertapenem 1 g IV q24 Correction Antibiotic Stop Date: 01/28/17 Discharge Medications: Refer to the Discharge Home Medication list for PRN reason. PICC Care - Routine: Yes - Labs/Radiology CBC Date: 01/22/17 CMP Date: 01/22/17 Call or Fax Lab and Imaging Results to: Dr. Dumont, - Follow Up Care Current Providers and Referrals: Carolyn Chahal MD [Primary Care Provider] - Scottie Dumont MD [Medical Doctor] - 01/27/17 9:30 am
--- NOTE | 2017-01-19 11:34 | GCON ---
[f rep st] CONSULTATION INFECTIOUS DISEASE CONSULTATION DATE OF CONSULTATION: 01/19/2017 REFERRING PHYSICIAN: Edgar Thomson MD REASON FOR CONSULTATION: Pelvic abscess associated with diverticulitis. HISTORY OF PRESENT ILLNESS: The patient is a 66-year-old female with a past medical history of dive rticulitis, who was admitted for elective laparoscopic sigmoid colectomy and drainage of pelvic absc ess associated with recurrent diverticulitis. Postoperatively, she developed pulmonary edema which has subsequently resolved. The patient describes having 2 prior episodes of diverticulitis beginnin g in October of this year, both of which were treated with levofloxacin and metronidazole. Intraop eratively, a pelvic abscess was drained and infarcted left paratubal cyst was also resected. Cultur es from the patient's pelvic abscess have grown 3+ E coli, which is quinolone resistant and trimetho prim/sulfa resistant. The patient's Levaquin and metronidazole have now been transitioned to ertape nem. She feels clinically improved postoperatively. She does note some diarrhea. The patient does not describe any previous pneumaturia. Given the above findings, I am now asked to assist in her o ngoing management. PAST MEDICAL HISTORY: Recurrent diverticulitis as above, type 2 diabetes mellitus, chronic renal in sufficiency, hypercholesterolemia, hypertension. Thyroid cancer and adrenal mass which is being fol lowed by imaging. PAST SURGICAL HISTORY: As above, appendectomy, cholecystectomy, thyroidectomy. CURRENT MEDICATIONS: Ertapenem 1 g IV daily, aspirin 325 mg p.o. daily, Lipitor 80 mg p.o. q.h.s., Coreg 6.25 mg p.o. b.i.d., Lovenox 40 mg subcu daily, Lasix 20 mg p.o. daily, insulin sliding scale, Synthroid 125 mcg p.o. daily, Cozaar 100 mg p.o. daily, Protonix 40 mg p.o. daily, Zoloft 75 mg p.o . daily. ALLERGIES: Sulfonamides associated with swelling, cephalexin associated with swelling. SOCIAL HISTORY: Patient does not smoke, drink alcohol, or use drugs. FAMILY HISTORY: Coronary artery disease. REVIEW OF SYSTEMS: Outside that noted in the HPI, the remainder of 10-system review is unremarkable . PHYSICAL EXAMINATION: VITAL SIGNS: Temperature 37.1, heart rate 67, respiratory rate 18, blood pre ssure 171/74. GENERAL: Patient is well nourished, well developed, in no acute distress. She appea rs nontoxic. HEENT: There is no scleral icterus, conjunctival injection, or conjunctival petechiae . Oropharynx is clear, without lesions. Mucous membranes are moist. There is no nasal discharge. There is no tenderness over the frontal, maxillary, or mastoid area. NECK: Supple, without lympha denopathy. CHEST: Clear to auscultation bilaterally without adventitious sounds. Respiratory effo rt is normal. CARDIOVASCULAR: Regular rate and rhythm without murmurs, gallops, rubs. ABDOMEN: S oft, nontender, nondistended. Left lower quadrant is dressed postoperatively. MUSCULOSKELETAL: Th ere is no cyanosis, clubbing, or edema. SKIN: No rashes noted. There are no stigmata of endocardi tis. SKIN: Warm and dry to touch. NEUROLOGIC: Patient is alert and interacts appropriately with the examiner. Cranial nerves 2-12 are grossly intact. Sensation is grossly intact. Muscle tone an d bulk are normal. LYMPHATICS: There are no cervical or supraclavicular nodes palpable. LABORATORY DATA: White blood cell count 7.2, hematocrit 35.2, platelets 139, neutrophils 73%, lymph ocytes 16%, serum creatinine is 1.2, AST 24, ALT 41, bilirubin 1.1, alkaline phosphatase 76. Cultur es of the pelvic abscess were Gram stain negative with 3+ E coli which is quinolone and trimethoprim /sulfa resistant. IMPRESSION: Pelvic abscess secondary to diverticulitis, now status post drainage and partial colect bharathi: Cultures are showing a quinolone resistant E coli. This will necessitate continued IV antibio tic therapy postoperatively. Plan a 10-day course of ertapenem for activity against E coli and anae robic shey. RECOMMENDATIONS: 1. Agree with ertapenem 1 g IV daily with plans for a 10-day course. 2. PICC line placement. Risks and benefits of PICC line were discussed with the patient today. 3. Side effects of ertapenem, including allergic reactions and potential for C difficile colitis we re reviewed with patient. 4. Follow up in my office post discharge for continued assessment. 5. Thank you for this consultation. Will continue to follow the patient with you. /[id number]/MODL
--- NOTE | 2017-01-19 14:59 | HOSPPROG ---
Hospitalist Progress Note Assessment/Plan: #Acute pulmonary edema: resolved. Thought to be due to negative pressure during surgery. She denies any sxs suggestive heart failure. Improved with IV Lasix, now on low-dose oral #Controlled DM: starting diet. Restart glargine as needed. Controlled currently with SSI #h/o follicular thyroid cancer: s/p thyroidectomy. LT4 #CKD 3: Cr stable #Diverticulitis with pelvic abscess: POD #3 sigmoid colectomy, abscess drainage. Will treat with Ertapenem for 10 days #Diet: diabetic #DVT ppx: Lovenox #Disp: please call if questions, we will follow along # Subjective: mild abd pain. Tolerated clears today Objective: Vital Signs Temp Pulse Resp BP Pulse Ox 37.1 C 62 18 159/61 H 94 01/19/17 07:41 01/19/17 08:05 01/19/17 07:41 01/19/17 08:05 01/19/17 07:41 Microbiology 01/16/17 15:01 Gram Stain - Final Abdomen - Eswab Laboratory Results 01/19/17 04:51 01/19/17 04:51 01/18/17 01/19/17 01/20/17 05:59 05:59 05:59 Intake Total 2364 Output Total 2150 1800 800 Balance 214 -1800 -800 - Physical Exam Constitutional: no apparent distress Eyes: PERRL Ears, Nose, Mouth, Throat: moist mucous membranes Cardiovascular: regular rate and rhythym, no murmur, rub, or gallop Respiratory: no respiratory distress, no rales or rhonchi Gastrointestinal: normoactive bowel sounds, soft, non-tender abdomen, tenderness (mild TTP. Surgical incisions C/D/I) Skin: warm Musculoskeletal: full muscle strength Neurologic: AAOx3, CN II-XII Intact Psychiatric: interacting appropriately ICD10 Worksheet Patient Problems: Problems Problem Status Onset Diverticulitis Acute
[2017-01-19] MEDS: ASPIRIN 325 MG TAB PO SCH (21:12)
[2017-01-19] MEDS: ATORVASTATIN CALCIUM 40 MG TAB PO SCH (21:13)
[2017-01-20 05:35] LABS: % IMMATURE GRANULYOCYTES 0.3 % (0.0-1.1); ABSOLUTE IMMATURE GRANULOCYTES 0.02 10^3/uL (0.00-0.10); ADD DIFF? NO; ADD MORPH? NO; ADD SCAN? NO; ATYPICAL LYMPHOCYTE FLAG 0 (0-99); FRAGMENT RBC FLAG 0 (0-99); HEMATOCRIT 37.4 % (38.0-47.0); HEMOGLOBIN 12.2 g/dL (12.6-16.3); LEFT SHIFT FLG 0 (0-99); LIPEMIA HEMOLYSIS FLAG 80 (0-99); MEAN CELL HEMOGLOBIN 27.1 pg (27.9-34.1); MEAN CELL HEMOGLOBIN CONCENTR. 32.6 g/dL (32.4-36.7); MEAN CELL VOLUME 82.9 fL (81.5-99.8); MEAN PLATELET VOLUME 11.7 fL (8.7-11.7); PLATELET CLUMPS FLAG 0 (0-99); PLATELET COUNT 159 10^3/uL (150-400); RED BLOOD CELL COUNT 4.51 10^6/uL (4.18-5.33); RED CELL DISTRIBUTION WIDTH 13.8 % (11.5-15.2)
[2017-01-20 05:45] LABS: ALANINE AMINOTRANSFERASE 41 IU/L (9-52); ALBUMIN 3.3 g/dL (3.5-5.0); ALKALINE PHOSPHATASE 77 IU/L (38-126); ANION GAP 12 mEq/L (8-16); ASPARTATE AMINOTRANSFERASE 26 IU/L (14-46); BILIRUBIN,TOTAL 1.1 mg/dL (0.1-1.4); CARBON DIOXIDE 26 mEq/l (22-31); CHLORIDE 101 mEq/L (97-110); CREATININE 1.1 mg/dL (0.6-1.0); GLOMERULAR FILTRATION RATE 50; GLUCOSE 144 mg/dL (70-100); POTASSIUM 3.4 mEq/L (3.5-5.2); SODIUM 139 mEq/L (134-144); TOTAL PROTEIN 5.8 g/dL (6.3-8.2)
[2017-01-20] MEDS: LEVOTHYROXINE 125 MCG TAB PO SCH (06:32)
--- NOTE | 2017-01-20 07:23 | SOAPPROG ---
SOAP Progress Note Assessment/Plan: Assessment: s/p lap sigmoid colectomy/drainage pelvic abscess-cultures E.coli R Levaquin/ switched to Ertapenam post op pulmonary edema-resolved on exam + CXR (probable negative pressure pulmonary edema) post op ileus-resolving IDDM HTN SISSY Plan: slowly advance diet Internal medicine consult appreciated. Continue Ertapenam/outpatient IV Abx Dilma Thomson MD, FACS 01/17/17 08:30 01/19/17 06:43 01/20/17 07:20 Subjective: frequent loose stool/tolerated clear liquids Objective: Vital Signs Temp Pulse Resp BP Pulse Ox 36.8 C 61 18 169/82 H 94 01/20/17 07:15 01/20/17 07:15 01/20/17 07:15 01/20/17 07:15 01/20/17 07:15 Microbiology 01/16/17 15:01 Gram Stain - Final Abdomen - Eswab Laboratory Results 01/20/17 04:41 01/20/17 04:41 01/19/17 01/20/17 01/21/17 05:59 05:59 05:59 Intake Total 1400 Output Total 1800 2400 Balance -1800 -1000 Physical Exam - Physical Exam General Appearance: alert, no apparent distress Respiratory: lungs clear, normal breath sounds Cardiac/Chest: regular rate, rhythm Abdomen: normal bowel sounds, soft, other (incisions o.k.) ICD10 Worksheet Patient Problems: Problems Problem Status Onset Diverticulitis Acute
[2017-01-20] MEDS: LOSARTAN POTASSIUM 50 MG TAB PO SCH (08:21)
[2017-01-20] MEDS: CARVEDILOL 6.25 MG TAB PO SCH ×2 (08:21→21:04)
[2017-01-20] MEDS: FUROSEMIDE 20 MG TAB PO SCH (08:21)
[2017-01-20] MEDS: POTASSIUM CL 20 MEQ TAB PO SCH (08:21)
[2017-01-20] MEDS: PANTOPRAZOLE SODIUM 40 MG TAB PO SCH (08:21)
[2017-01-20] MEDS: ENOXAPARIN 40 MG/0.4 ML SYR SC SCH (08:22)
[2017-01-20] MEDS: INSULIN REGULAR HUMAN 100 UNIT/ML SC SCH ×4 (08:22→21:05)
[2017-01-20] MEDS: SERTRALINE HCL 50 MG TAB PO SCH (08:22)
[2017-01-20] MEDS: ERTAPENEM 1 GM in NS 100 ML IV SCH (08:30)
--- NOTE | 2017-01-20 16:14 | HOSPPROG ---
Hospitalist Progress Note Assessment/Plan: #Acute pulmonary edema: resolved. Thought to be due to negative pressure during surgery. She denies any sxs suggestive heart failure. Will stop Lasix and monitor #Controlled DM: advancing diet slowly. Restart glargine as needed. Controlled currently with SSI #Ileus: having BMs #Diarrhea: C diff negative #h/o follicular thyroid cancer: s/p thyroidectomy. LT4 #CKD 3: Cr stable #Diverticulitis with pelvic abscess: POD #4 sigmoid colectomy, abscess drainage. E coli on cultures Will treat with Ertapenem for 10 days #Diet: diabetic #DVT ppx: Lovenox #Disp: please call if questions, we will follow along # Subjective: diarrhea Objective: Vital Signs Temp Pulse Resp BP Pulse Ox 36.5 C 63 16 155/66 H 96 01/20/17 15:12 01/20/17 15:12 01/20/17 15:12 01/20/17 15:12 01/20/17 15:12 Microbiology 01/16/17 15:01 Gram Stain - Final Abdomen - Eswab Laboratory Results 01/20/17 04:41 01/20/17 04:41 01/19/17 01/20/17 01/21/17 05:59 05:59 05:59 Intake Total 1400 Output Total 1800 2400 750 Balance -1800 -1000 -750 - Physical Exam Constitutional: no apparent distress, obese Eyes: PERRL Ears, Nose, Mouth, Throat: moist mucous membranes, hearing normal Cardiovascular: regular rate and rhythym, no murmur, rub, or gallop Respiratory: no respiratory distress, no rales or rhonchi Gastrointestinal: normoactive bowel sounds, tenderness (mild LLQ) Skin: warm Musculoskeletal: full muscle strength Neurologic: AAOx3, CN II-XII Intact Psychiatric: interacting appropriately ICD10 Worksheet Patient Problems: Problems Problem Status Onset Diverticulitis Acute
[2017-01-20] MEDS: ATORVASTATIN CALCIUM 40 MG TAB PO SCH (21:04)
[2017-01-20] MEDS: ASPIRIN 325 MG TAB PO SCH (21:05)
[2017-01-20 23:03] VITALS: TEMP 97.9
[2017-01-21] MEDS: LEVOTHYROXINE 125 MCG TAB PO SCH (05:01)
[2017-01-21 05:18] LABS: % IMMATURE GRANULYOCYTES 0.3 % (0.0-1.1); ABSOLUTE IMMATURE GRANULOCYTES 0.02 10^3/uL (0.00-0.10); ADD DIFF? NO; ADD MORPH? NO; ADD SCAN? NO; ATYPICAL LYMPHOCYTE FLAG 0 (0-99); FRAGMENT RBC FLAG 0 (0-99); HEMATOCRIT 31.8 % (38.0-47.0); HEMOGLOBIN 10.2 g/dL (12.6-16.3); LEFT SHIFT FLG 0 (0-99); LIPEMIA HEMOLYSIS FLAG 80 (0-99); MEAN CELL HEMOGLOBIN 27.6 pg (27.9-34.1); MEAN CELL HEMOGLOBIN CONCENTR. 32.1 g/dL (32.4-36.7); MEAN CELL VOLUME 86.2 fL (81.5-99.8); MEAN PLATELET VOLUME 11.4 fL (8.7-11.7); PLATELET CLUMPS FLAG 0 (0-99); PLATELET COUNT 154 10^3/uL (150-400); RED BLOOD CELL COUNT 3.69 10^6/uL (4.18-5.33); RED CELL DISTRIBUTION WIDTH 13.8 % (11.5-15.2)
[2017-01-21 05:35] LABS: ALANINE AMINOTRANSFERASE 37 IU/L (9-52); ALBUMIN 3.6 g/dL (3.5-5.0); ALKALINE PHOSPHATASE 83 IU/L (38-126); ANION GAP 12 mEq/L (8-16); ASPARTATE AMINOTRANSFERASE 25 IU/L (14-46); BILIRUBIN,TOTAL 0.8 mg/dL (0.1-1.4); CALCIUM 9.3 mg/dL (8.5-10.4); CARBON DIOXIDE 28 mEq/l (22-31); CHLORIDE 101 mEq/L (97-110); CREATININE 1.1 mg/dL (0.6-1.0); GLOMERULAR FILTRATION RATE 50; GLUCOSE 257 mg/dL (70-100); POTASSIUM 3.7 mEq/L (3.5-5.2); SODIUM 141 mEq/L (134-144); TOTAL PROTEIN 6.1 g/dL (6.3-8.2)
--- NOTE | 2017-01-21 07:49 | PDIAF ---
- Diagnosis Diagnosis: Pelvic abscess Code Status: Full Code - Medication Management Discharge Medications: Medications to Continue on Transfer Aspirin [Aspirin 325 mg (*)] 325 mg PO HS 11/19/16 [Last Taken Unknown] Atorvastatin Calcium [Lipitor 80 mg] 80 mg PO HS 11/19/16 [Last Taken Unknown] Calcium Carbonate/Vitamin D3 [Calcium 500 + Vit D Caplet] 1 each PO DAILY [Last Taken Unknown] Carvedilol 6.25 mg PO BID 11/19/16 [Last Taken 11/19/16] Cholecalciferol Vit D3 [Vitamin D3 (*)] 1,000 units PO DAILY 11/19/16 [Last Taken Unknown] FEXOFENADINE HCL 180 mg PO DAILY PRN 11/19/16 [Last Taken Unknown] Fluticasone/Salmeterol [Advair 100-50 Diskus] 1 puffs PO BID PRN 11/19/16 [Last Taken Unknown] Furosemide 20 mg PO DAILY 11/19/16 [Last Taken 11/19/16] Herbals/Supplements -Info Only 1 ea PO DAILY 11/19/16 [Last Taken Unknown] Insulin Glargine [Lantus] 32 units SQ HS 11/19/16 [Last Taken Unknown] Insulin Lispro [Humalog] 15 - 17 unit SQ AC 11/19/16 [Last Taken Unknown] LOSARTAN POTASSIUM 100 mg PO DAILY 11/19/16 [Last Taken 11/19/16] Levothyroxine [Synthroid 125 mcg (*)] 125 mcg PO DAILY06 11/19/16 [Last Taken ] Pantoprazole Sodium [Protonix 40mg (*)] 40 mg PO DAILY 11/19/16 [Last Taken ] SERTRALINE HCL 75 mg PO DAILY 11/19/16 [Last Taken 11/19/16] Strap Stitcher Antibiotics: Ertapenem 1 g IV q24 Jail Antibiotic Stop Date: 01/28/17 Discharge Medications: Refer to the Discharge Home Medication list for PRN reason. PICC Care - Routine: Yes - Orders Diet Recommendation: low fiber Weigh Patient: weekly Date to Remove Sutures/[place]: 01/27/17 (Call Dr. Thomson' office for appointment [phone]) Activity/Weight Bearing Restrictions: no sports x 6 weeks - Labs/Radiology CBC Date: 01/22/17 CMP Date: 01/22/17 Call or Fax Lab and Imaging Results to: Dr. Dumont, - Follow Up Care Current Providers and Referrals: Scottie Dumont MD [Medical Doctor] - 01/27/17 9:30 am Carolyn Chahal MD [Primary Care Provider] - Edgar Thomson MD [Medical Doctor] -
[2017-01-21 08:00] VITALS: BP 149/73; RESP 16; O2SAT 94
[2017-01-21] MEDS: SERTRALINE HCL 50 MG TAB PO SCH (08:33)
[2017-01-21] MEDS: PANTOPRAZOLE SODIUM 40 MG TAB PO SCH (08:33)
[2017-01-21] MEDS: LOSARTAN POTASSIUM 50 MG TAB PO SCH (08:34)
[2017-01-21] MEDS: INSULIN REGULAR HUMAN 100 UNIT/ML SC SCH ×2 (08:34→11:54)
[2017-01-21] MEDS: CARVEDILOL 6.25 MG TAB PO SCH (08:34)
[2017-01-21] MEDS: ENOXAPARIN 40 MG/0.4 ML SYR SC SCH (08:34)
[2017-01-21] MEDS: ERTAPENEM 1 GM in NS 100 ML IV SCH (08:34)
[2017-01-21] MEDS: POTASSIUM CL 20 MEQ TAB PO SCH (08:34)
[2017-01-21 08:35] VITALS: PULSE 64
--- NOTE | 2017-01-21 11:45 | PCMIDPN ---
Assessment/Plan: Assessment: pelvic abscess with diverticulitis -- doing very well clinically on ertapenem. Plan to continue this as an outpatient through 01/28. Stable to go home at present. Plan: 1) continue IV ertapenem through 01/28/2017. 2) stable to go home to complete IVs as an outpatient. Subjective: Patient is sitting up in her hospital room. Has some residual abdominal pain but overall much improved. Tolerating ertapenem without issue. No further fevers or chills. Anxious to go home. Objective: Ertapenem #4 Vital Signs Temp Pulse Resp BP Pulse Ox 36.6 C 64 16 149/73 H 94 01/21/17 07:59 01/21/17 08:34 01/21/17 07:59 01/21/17 08:34 01/21/17 07:59 Microbiology 01/16/17 15:01 Gram Stain - Final Abdomen - Eswab Laboratory Results 01/21/17 05:00 01/21/17 05:00 01/20/17 01/21/17 01/22/17 05:59 05:59 05:59 Intake Total 1400 400 Output Total 2400 1450 300 Balance -1000 -1050 -300 - Physical Exam General Appearance: WD/WN, alert, no apparent distress, non-toxic Respiratory: lungs clear, normal breath sounds, No respiratory distress Cardiac/Chest: regular rate, rhythm, No tachycardia Skin: normal color, warm/dry, No rash Neuro/Psych: alert, normal mood/affect, oriented x 3 ICD10 Worksheet Patient Problems: Problems Problem Status Onset Diverticulitis Acute
[2017-01-21 12:23] LABS: GLUCOSE 369 mg/dL (70-100)
--- NOTE | 2017-01-21 13:46 | GDS ---
[f rep st] DISCHARGE SUMMARY DISCHARGE DIAGNOSES: 1. Sigmoid diverticulitis with abscess. 2. Diabetes. 3. Hypertension. PROCEDURE PERFORMED: 01/16/2017: Laparoscopic sigmoid colectomy with primary colocolostomy and drainage of pelvic abscess. HOSPITAL COURSE: For details of admission history and physical, please see dictated summary. Briefly, the patient is a 66-year-old female who has been suffering with diverticulitis for the past several months. She was hospitalized with a localized perforation and responded to antibiotics which she completed a course of Levaquin and Flagyl at home. She had 1 relapse as an outpatient, was treated with a second course of Levaquin and Flagyl primarily due to a cephalosporin allergy. She was admitted after a mechanical bowel preparation for elective sigmoid colectomy. At the time of surgery, was found to have a persistent abscess approximately 2 cm in diameter. This was drained, and a culture was submitted for aerobes and anaerobes. This grew out E coli that was resistant to Levaquin which she had received perioperatively. She was switched to ertapenem 1 g IV piggyback q.24 hours, and infectious disease consultation was requested. The patient was seen by Dr. Scottie Dumont and recommendations were made for a 10 day course following discharge. She was advanced in her diet after surgery, began passing liquid stool on the third postoperative day, and remained afebrile in the postoperative. Her blood sugars were reasonably well controlled on sliding scale insulin. She will resume her previous regimen of insulin at home. She was seen in consultation by the hospitalist service after surgery. DISCHARGE MEDICATIONS: Include carvedilol 6.25 mg p.o. b.i.d., Losartan 100 mg p.o. q. day, sertraline 75 mg p.o. q. day, levothyroxine 125 mcg p.o. q. day, furosemide 20 mg p.o. q. day, Lipitor 80 mg p.o. q.h.s., Protonix 40 mg p.o. q. day, Advair 100/50 one puff p.o. b.i.d., Lantus insulin 32 units subcu q.h.s., insulin Humalog 15-17 units subcu a.c., vitamin D 1000 units p.o. q. day, calcium carbonate 500 mg p.o. q. day, fexofenadine 180 mg p.o. q. day, and aspirin 325 mg p.o. q.h.s. Patient did not require narcotic analgesics. For the past 48 hours prior to discharge and did not request them to be prescribed at home. She will also continue on ertapenem 1 g IV piggyback q.24 hours and return to the hospital for outpatient infusional therapy. At the time of discharge, patient was afebrile, ambulatory. Her incision was healing well without sign of infection. Her drains placed at time of surgery had been removed. Her white blood cell count on the day of discharge was 6.8, hemoglobin was 10.2, hematocrit 31.8. Platelets were 154,000. VT prophylaxis which had been administered during her hospital stay with Lovenox was discontinued as she was ambulatory and fully active. /[id number]/MODL MTDD
== END 2017-01-21 12:40 | disposition home or self-care (01) | DRG 329 ==
LOC: F3E 11:30 → F2N 17:41 → F3E 01-18 14:41
PROVIDERS: ADMIT Surgery; ATTEND Surgery
DX: K57.20 Diverticulitis of large intestine with perforation and abscess without bleeding (principal); J81.0 Acute pulmonary edema; K56.7 Ileus, unspecified; N83.8 Other noninflammatory disorders of ovary, fallopian tube and broad ligament; R19.7 Diarrhea, unspecified; E89.0 Postprocedural hypothyroidism; I12.9 Hypertensive chronic kidney disease with stage 1 through stage 4 chronic kidney disease, or unspecified chronic kidney disease; E11.22 Type 2 diabetes mellitus with diabetic chronic kidney disease; N18.3 Chronic kidney disease, stage 3 (moderate); G47.33 Obstructive sleep apnea (adult) (pediatric); Z85.850 Personal history of malignant neoplasm of thyroid; Z79.4 Long term (current) use of insulin
CPT/HCPCS: 82947-QW; C1751; J1100; J1170; J1335; J1650; J1815; J1956; J2001; J2250; J2310; J2405; J2704; J3010

== ENCOUNTER → 2017-04-02 | Outpatient (CLI) | payer BC ==
[~2017-04-02] MED LIST changes: -BACITRACIN 50,000 UNITS/10 ML SYR IRR ONE; -BUPIVACAINE 0.5% 30 ML SDV ONE; +IOPAMIDOL (ISOVUE-300) 100 ML BTL ONE; -POLYMYXIN B SULFATE 500,000 UNIT/10 ML SYR IRR ONE
== END ==
LOC: FIMAGING 15:55
PROVIDERS: ATTEND Internal Medicine Endocrinology, Diabetes & Metabolism
DX: E27.9 Disorder of adrenal gland, unspecified (principal)
CPT/HCPCS: Q9967

== ENCOUNTER → 2017-10-29 | Outpatient (CLI) | payer OTHER | LOC: FIMAGING 15:50 | PROVIDERS: ATTEND Obstetrics & Gynecology | DX: Z12.31 Encounter for screening mammogram for malignant neoplasm of breast (principal) ==

== ENCOUNTER → 2018-04-30 | Outpatient (CLI) | payer OTHER | LOC: FIMAGING 15:50 | PROVIDERS: ATTEND Internal Medicine Endocrinology, Diabetes & Metabolism | DX: E27.9 Disorder of adrenal gland, unspecified (principal); K57.30 Diverticulosis of large intestine without perforation or abscess without bleeding ==

== ENCOUNTER → 2018-11-30 | Outpatient (CLI) | payer OTHER | LOC: FIMAGING 12:55 | PROVIDERS: ATTEND Obstetrics & Gynecology | DX: Z12.31 Encounter for screening mammogram for malignant neoplasm of breast (principal) ==